=== PATIENT | female | born 1965 | race Caucasian/White ===

== ENCOUNTER 2018-03-25 17:57 | Observation (INO) ==
[2018-03-25] MEDS ORDERED: ASPIRIN 325 MG TABLET PO STA (18:32)
[2018-03-25 18:52] LABS: Basophils % 0.5 % (0.0-0.8); Eosinophils # 0.1 10*3/uL (0.0-0.87); Eosinophils % 1.1 % (0.00-10.9); Hematocrit 42.5 VOL% (35.7-47.0); Hemoglobin 14.3 GM/DL (12.0-16.0); Immature Granulocytes % 0.3 %; Immature Granulocytes Absolute 0.02 #; Lymphocytes # 2.3 10*3/uL (1.4-4.0); Lymphocytes % 36.4 % (21.3-54.2); Mean Corpuscular HGB Conc 33.6 GM/DL (32-36); Mean Corpuscular Hemoglobin 30 PG (27-34); Mean Corpuscular Volume 89.1 FL (87-102); Monocytes # 0.5 10*3/uL (0.11-0.8); Monocytes % 8.4 % (1.7-12.7); Neutrophils # 3.4 10*3/uL (1.4-7.4); Neutrophils % 53.3 % (38.7-73.9); Platelet Count 275 T/CUMM (130-400); Red Blood Count 4.77 MC/CUMM (3.8-5.5); Red Cell Distribution Width 13.2 % (9.3-17.3); White Blood Count 6.4 T/CUMM (4-12)
[2018-03-25] MEDS ORDERED: METOCLOPRAMIDE 10 MG/2 ML VIAL IV STA (19:00)
[2018-03-25] MEDS ORDERED: diphenhydrAMINE 50 MG/1 ML VIAL IV STA (19:01)
[2018-03-25] MEDS ORDERED: KETOROLAC 30 MG/1 ML VIAL IV STA (19:01)
[2018-03-25] MEDS ORDERED: LABETALOL 20 MG/4 ML SYRINGE IV STA (19:01)
[2018-03-25 19:05] LABS: Alanine Aminotransferase 33 U/L (13-56); Albumin 3.9 G/DL (3.4-5.0); Alkaline Phosphatase 103 U/L (45-117); Aspartate Amino Transferase 31 U/L (0-37); Bilirubin,Total < 0.39 MG/DL (0.2-1.0); Blood Urea Nitrogen 17 MG/DL (7-18); Calcium 9.6 MG/DL (8.5-10.1); Glucose 80 MG/DL (74-106); Osmolality,Calculated 277.5 MOS/KG (273-304); Potassium 3.9 MMOL/L (3.5-5.1); Sodium 139 MMOL/L (136-145); Total Protein 7.9 G/DL (6.4-8.3)
[2018-03-25] MEDS ORDERED: LABETALOL 100 MG/20 ML VIAL IV ONE (19:06)
[2018-03-25] MEDS ORDERED: hydrALAZINE 20 MG/1 ML VIAL IV STA ×2 (20:18→20:54)
[2018-03-25] MEDS ORDERED: NITROGLYCERIN SL 0.4 MG TABLET SL PRN (22:34)
[2018-03-25] MEDS ORDERED: tiZANidine 4 MG TABLET PO PRN (22:38)
[2018-03-25] MEDS ORDERED: ONDANSETRON 4 MG TABLET PO PRN (22:38)
[2018-03-25] MEDS ORDERED: traZODone 50 MG TABLET PO SCH (22:45)
[2018-03-25] MEDS ORDERED: ESCITALOPRAM 10 MG TABLET PO SCH (23:00)
[2018-03-25] MEDS ORDERED: GLUCAGON 1 MG VIAL IM PRN (23:46)
[2018-03-25] MEDS ORDERED: DEXTROSE 50% 25 GM/50 ML VIAL IV PRN (23:46)
[2018-03-26] MEDS: predniSONE 1 MG TABLET PO SCH ×2 (00:37→10:54)
[2018-03-26] MEDS: ENOXAPARIN 80 MG/0.8 ML SYRINGE SUBCUT SCH ×2 (00:37→10:56)
[2018-03-26] MEDS: lamoTRIgine 25 MG TABLET PO SCH ×2 (00:37→10:53)
[2018-03-26 02:14] LABS: Risk Ratio 4.09; VLDL CHOLESTEROL 31.4 MG/DL
[2018-03-26] MEDS: DEXTROSE 5% NACL 0.45% 1,000 ML IV SCH ×2 (02:30→16:05)
[2018-03-26] MEDS: HYDROmorphone 2 MG TABLET PO PRN ×3 (02:30→15:24)
[2018-03-26] MEDS: LEVOTHYROXINE 112 MCG TABLET PO SCH ×2 (05:55→06:17)
[2018-03-26] MEDS ORDERED: ACARBOSE PO SCH (09:00)
[2018-03-26] MEDS ORDERED: CHOLECALCIFEROL 5,000 UNIT TABLET PO SCH (09:00)
[2018-03-26] MEDS ORDERED: ASPIRIN EC 325 MG TABLET PO SCH (09:00)
[2018-03-26] MEDS ORDERED: LISINOPRIL/HCTZ 10-12.5 MG TABLET PO SCH (10:30)
[2018-03-26] MEDS ORDERED: CARVEDILOL 6.25 MG TABLET PO SCH (10:30)
[2018-03-26 16:17] VITALS: BP 137/86
[2018-03-26] MEDS ORDERED: ATORVASTATIN 40 MG TABLET PO SCH (21:00)
[2018-03-26] MEDS ORDERED: HYDROXYCHLOROQUINE 200 MG TABLET PO SCH (21:00)
[2018-03-27] MEDS ORDERED: MELOXICAM 7.5 MG TABLET PO SCH (09:00)
== END 2018-03-26 18:02 | disposition home or self-care (01) ==
LOC: N.EDINP 17:57 → N.ED 17:57 → N.EDINP 23:38 → N.TELEN 23:45
PROVIDERS: ADMIT Internal Medicine; ATTEND Internal Medicine